=== PATIENT | female | born 1970 | race Caucasian/White ===

== ENCOUNTER 2017-04-01 19:45 | Emergency (ER) | payer OTHER, BC ==
[~2017-04-01] VITALS: Ht 162.6 cm; Wt 118.6 kg
[~2017-04-01 19:45] MED LIST: ADVAIR 250/501 DISK IH; AZITHROMYCIN250 MG PO; BREO ELLIPTA I1 EACH IH; CEFTIN500 MG PO; DUONEB 2.5-0.5 M3 ML AEROSOL; EFFEXOR XR150 MG PO; FLUTICASONE PRO16 GM BOTH NARES; LEVAQUIN750 MG PO; LISINOPRIL10 MG; LO-DOSE ASPIRIN81 M2 PO; MAALOX ADVANCE355 ML PO; NEXIUM40 MG PO; NOHOMEMEDS; OMEPRAZOLE20 MG PO; PHENERGAN-CODE120 ML PO; PROMETHAZINE HC25 M1 PO; REGLAN10 MG PO; VENLAFAXINE H37.5 M3 PO; VENTOLIN HFA18 GM IH
[2017-04-01] MEDS ORDERED: NAPROSYN500 MG PO (22:14)
[2017-04-01] MEDS ORDERED: TRAMADOL HCL50 MG PO (22:14)
[2017-04-01 22:23] VITALS: BP 158/95
== END 2017-04-01 22:23 | disposition home or self-care (01) ==
LOC: EME 19:45 → EXP 19:45
DX: S63.501A Unspecified sprain of right wrist, initial encounter (principal); X50.0XXA Overexertion from strenuous movement or load, initial encounter; Y93.F2 Activity, caregiving, lifting; Y99.0 Civilian activity done for income or pay
CPT/HCPCS: 73110; 99281; 99283